=== PATIENT | female | born 1955 | race Caucasian/White ===

== ENCOUNTER 2018-03-05 02:30 | Inpatient (IN) | payer OTHER ==
[~2018-03-05] VITALS: Ht 157.5 cm; Wt 70.9 kg
[~2018-03-05 02:30] MED LIST: CLARITIN-D 241 EACH PO; MUCINEX600 M1 PO; NASONEX17 GM NASB; PROAIR HFA8.5 GM INH
--- NOTE | 2018-03-05 11:33 | Patient Discharge Instructions ---
Discharge Instructions General Discharge Information You were seen/treated for: Hip pain You had these procedures: Total hip replacement Watch for these problems: See pre printed sheet No bath, but you may shower: Yes Other wound care: See pre printed sheet Diet Continue normal diet: Yes Activity Activity Self Limited: Yes Activity Limited to: Weight bear as tolerated Acute Coronary Syndrome Inclusion Criteria At DC or during hospital stay patient has or had the following: Discharge Core Measures Meds if any: Prescribed or Continued at Discharge Meds if any: NOT Prescribed or Continued at Discharge Congestive Heart Failure Inclusion Criteria At DC or during hospital stay patient has or had the following: Discharge Core Measures Meds if any: Prescribed or Continued at Discharge Meds if any: NOT Prescribed or Continued at Discharge Cerebrovascular accident Inclusion Criteria At DC or during hospital stay patient has or had the following: Discharge Core Measures Meds if any: Prescribed or Continued at Discharge Meds if any: NOT Prescribed or Continued at Discharge Venous thromboembolism Discharge Core Measures - Per Current guidelines, there needs to be overlap - treatment for the first 5 days of Warfarin therapy. - If discharged on Warfarin prior to 5 days of - overlap therapy, the patient will need to be - assessed for post discharge needs including - *Post discharge parental anticoagulation - *Warfarin and/or parental anticoagulation education - *Follow up date to check INR post discharge Meds if any: Prescribed or Continued at Discharge Note: Overlap Therapy is Warfarin and Anticoagulant Meds if any: NOT Prescribed or Continued at Discharge
[2018-03-05] MEDS ORDERED: OMEPRAZOLE20 M3 PO (11:34)
[2018-03-05] MEDS ORDERED: ASPIRIN EC81 M1 PO (11:34)
[2018-03-05] MEDS ORDERED: DILAUDID2 M1 PO (11:34)
[2018-03-05] MEDS ORDERED: COLACE100 M1 PO (11:34)
[2018-03-05] MEDS ORDERED: MIRALAX17 G1 PO (11:34)
--- NOTE | 2018-03-05 11:36 | Admission Core Measures ---
Acute Coronary Syndrome (CM) ACS Core Measures Acute Coronary Syndrome Diagnosis No Congestive Heart Failure (NEW) CHF Core Measures Congestive Heart Failure Diagnosis No Cerebrovascular Accident CVA Core Measures CVA/TIA Diagnosis No Venous Thromboembolism VTE Core Dante (View Protocol) VTE Risk Factors Surgery No Mechanical VTE Prophylaxis d/t N/A MechProphylax Ordered No VTE Pharm Prophylaxis d/t NA PharmProphylax ordered Problem List As ranked by this Provider includes Assessment & Plan 1. Status post total hip replacement, left HOME MEDS Home Med List Albuterol Sulfate (Proair Hfa) 90 MCG HFA.AER.AD 2 PUF INH AD PRN RESP. ( Reported) Aspirin (Ecotrin*) 81 MG TABLET.DR 1 TAB PO BID blood thinner Docusate Sodium (Colace) 100 MG CAPSULE 1 CAP PO BID constipation Guaifenesin (Mucinex) 600 MG TAB.ER.12H 1 TAB PO QPM MUCUS (Reported) Hydromorphone HCl (Dilaudid) 2 MG TABLET 1-2 TAB PO Q4P PRN pain Loratadine/Pseudoephedrine (Claritin-D 24 Hour Tablet) 10 MG-240 MG TAB.ER.24H 1 TAB PO QAM ALLERGIES (Reported) Mometasone Furoate (Nasonex) 50 MCG SPRAY.PUMP 2 SPRAY NASB DAILY ALLERGIES ( Reported) Omeprazole 20 MG TABLET.DR 1 TAB PO DAILY ulcer prophylaxis Polyethylene Glycol 3350 (Miralax) 17 GRAM POWD.PACK 1 PAC PO DAILY constipation
--- NOTE | 2018-03-05 11:37 | Surg Short-stay <48hrs Dis Sum ---
Visit Information Visit Dates Admission Date: 03/05/18 Discharge Date: 03/06/18 Surgical Short Stay DC Summary Admission Diagnosis: DJD/OA Final Diagnosis: Same, s/p L MAURA Procedure(s): L MAURA - see operative report Summary/Significant Findings: Pt underwent L MAURA by Dr Gloria and was brought to the PACU in stable condition. Post op she was seen by PT and ambulated WBAT. She was able to void without difficulty, her vitals remained stable, her pain was well controlled and she was deemed stable for discharge home with services. Condition at Discharge: good Discharge Disposition: home health services Discharge instructions provided to patient/family: Yes Post discharge follow-up plan: Keep scheduled appointment with Dr Gloria
--- NOTE | 2018-03-05 14:21 | RADIOLOGY REPORT ---
EXAMINATION: XR HIP, LEFT CLINICAL INFORMATION: Patient status post total hip arthroplasty. COMPARISON: None TECHNIQUE: Portable 2 views of the left hip. FINDINGS: Patient is status post total left hip arthroplasty. Components are in expected alignment. There is no periprosthetic femoral fracture. IMPRESSION: Unremarkable post arthroplasty radiographs.
--- NOTE | 2018-03-05 16:03 | Operative Report ---
Operative/Inv Procedure Report Surgery Date: 03/05/18 Name of Procedure: Left total hip replacement Pre-Operative Diagnosis: Primary left hip DJD Post-Operative Diagnosis: Same Estimated Blood Loss: 250 Surgeon/Player Development Manager: Faizan ROBLES,Cesar Sanderson Anesthesia: block Operative/Procedure Note Note: Description of Procedure: The patient was taken to the operating room and positively identified. After induction of spinal anesthesia and administration of appropriate pre-operative antibiotics, the patient was positioned supine on the operating room table and all bony prominences were well padded. After performing a surgical timeout, the left lower extremity was prepped and draped in the usual sterile fashion. A direct anterior approach was made to the left hip. The incision was carried sharply through superficial soft tissues to the level of the fascia. Meticulous hemostasis was maintained with Bovie electocautery. The fascia over the tensor fascia johnson muscle was opened sharply and the interval between the TFL and the sartorius was entered bluntly taking care to stay lateral to the lateral femoral cutaneous nerve. Retractors were placed around the femoral neck and the pericapsular fat was identified. The ascending branches of the lateral femoral circumflex vessels were identified and carefully coagulated. The pericapsular fat and anterior capsule were then resected. A napkin ring osteotomy was performed and the femoral head was removed without difficulty. Attention was then turned to the acetabulum. After appropriate placement of retractors, the acetabulum was exposed. Soft tissue was cleaned from the acetabular margin and notch. Overhanging osteophytes were removed and the teardrop was exposed. The acetabulum was then sequentially reamed to accept a 52 mm [place] Tritanium hemispherical solid shell. This was impacted into place in the appropriate position and fitted with a 32 mm Trident X3 zero degree polyethylene insert. Attention was then turned to the femur. After performing the appropriate ligament releases, the proximal femur was exposed. It was then sequentially broached to accept a size #2 [place] Accolade 2 132 neck angle stem. This was trialed for leg length and stability. The trial component was removed and the final component was impacted into place. The trunnion was carefully cleaned and fit with a 32 mm, +4 Biolox delta ceramic femoral head. The hip was reduced and put through a full range of motion and found to be stable. The articular space was then irrigated with sterile saline. The periarticular soft tissues were infilitrated with Marcaine. The fascial layer was closed with interrupted #1 vicryl suture and the skin was re-approximated with interrupted 2 -0 vicryl. The skin was closed with a running 3-0 V-Lock suture. Steri-strips and a sterile dressing were applied. The patient was awakened and taken to the recovery room in satisfactory condition.
--- NOTE | 2018-03-05 16:06 | PN- Orthopedic ---
Subjective Subjective: POSTOP CHECK Patient reports decreased sensation in her lower extremities and mild pain in her hip. She reports tolerating water. Denies nausea, vomiting chest pain, difficulty breathing, sob or voiding. She offers no other complaints. Objective Vital Signs and I&Os afebrile, VSS Physical Exam: Gen - resting comfortably in PACU in nad Cardiac - S1S2 noted Lungs - CTAB Abd - soft, nontender Ext - Left hip dressing c/d/i, moves all extremities, compartment soft, decreased motor and sensory secondary to spinal, alps in place, no edema or calf tenderness Current Medications: Current Medications Sig/Ramiro Start time Last Medication Dose Route Stop Time Status Admin Acetaminophen 0 .STK-MED ONE 03/05 1033 DC PO Acetaminophen 975 MG ONCE 03/05 0000 NR PO 03/05 235 Albuterol Sulfate 2 PUF Q4P PRN 03/05 1130 AC INH Cefazolin Sodium 2,000 MG ONCE 03/05 0000 NR IV 03/05 235 Fentanyl Citrate 100 MCG .STK-MED ONE 03/05 0653 DC IM 03/05 0654 Fluticasone 2 SPRAY DAILY 03/06 900 AC Propionate JASON Guaifenesin 600 MG QPM 03/05 2100 AC PO Loratadine 10 MG DAILY 03/06 900 AC PO Midazolam HCl 2 MG .STK-MED ONE 03/05 0653 DC IM 03/05 0654 Oxycodone HCl 0 .STK-MED ONE 03/05 1033 DC PO Oxycodone HCl 10 MG ONCE 03/05 0000 NR PO 03/05 235 Tranexamic Acid 2,000 MG .STK-MED ONE 03/05 0742 DC IV 03/05 743 Results Last 48 Hours of Labs: SERVICE DATE: 03/05/18 EXAM TYPE: RAD - XRY-HIP 2-3 VIEWS, LEFT EXAMINATION: XR HIP, LEFT CLINICAL INFORMATION: Patient status post total hip arthroplasty. COMPARISON: None TECHNIQUE: Portable 2 views of the left hip. FINDINGS: Patient is status post total left hip arthroplasty. Components are in expected alignment. There is no periprosthetic femoral fracture. IMPRESSION: Unremarkable post arthroplasty radiographs. DICTATED BY: Gama Landa MD DATE/TIME DICTATED:03/05/181408 CASTING AGENT:HUDSON DATE/TIME TRANSCRIBED:07/09/18 / 1409 Assessment/Plan Assessment/Plan 62 F w/ a hx of seasonal allergies and asthma s/p L THR, with diminished sensation secondary to spinal, awaiting PT eval PT eval, WBAT Reg diet, IVF overnight Pain control prn Postop abx - ancef x2 DVT ppx - alps, asa 81 bid Home meds ordered Encourage IS Dc planning Core Measures Venous Thromboembolism VTE Risk Factors Surgery No Mechanical VTE Prophylaxis d/t N/A MechProphylax Ordered No VTE Pharm Prophylaxis d/t NA PharmProphylax ordered
[2018-03-05 17:18] VITALS: BP 118/76
[2018-03-05 19:56] VITALS: BP 112/66
[2018-03-05 22:24] VITALS: BP 108/60
[2018-03-05 23:30] VITALS: BP 106/58
[2018-03-06 03:36] VITALS: BP 100/58
[2018-03-06 08:00] VITALS: BP 118/60
[2018-03-06 08:33] LABS: ABSOLUTE BASOPHIL COUNT 0 /CUMM (0.0-0.2); ABSOLUTE EOSINOPHIL COUNT 0 /CUMM (0.0-0.7); ABSOLUTE GRANULOCYTE CT 7.9 /CUMM (1.4-6.5); ABSOLUTE LYMPH COUNT 0.8 /CUMM (1.2-3.4); ABSOLUTE MONOCYTE COUNT 0.3 /CUMM (0.10-0.60); BASOPHIL % 0.3 % (0.0-2.0); EOSINOPHIL % 0.1 % (0-5); GRANULOCYTE % 86.8 % (42.2-75.2); HEMATOCRIT 33.2 % (37-47); MEAN CORPUSCULAR HGB 33.9 PG (27.0-31.0); MEAN CORPUSCULAR HGB CONC 34.1 G/DL (33.0-37.0); MEAN CORPUSCULAR VOLUME 99.6 FL (81.0-99.0); MEAN PLATELET VOLUME 7.6 FL (7.4-10.4); PLATELET COUNT 233 /CUMM (130-400); RED BLOOD CELL CT 3.34 /CUMM (4.20-5.40)
[2018-03-06 09:14] LABS: WHITE BLOOD CELL COUNT 9.1 /CUMM (4.8-10.8)
--- NOTE | 2018-03-06 09:58 | PN- Orthopedic ---
Subjective Subjective: Patient in bed with minimal pain, controlled with oral medication. Tolerating regular diet with no nausea. Out of bed with physical therapy, ambulating with rolling walker. Voiding. No bowel movement yet. Denies paresthesias. Denies chest pain, shortness of breath, headache Objective Vital Signs and I&Os Vital Signs Date Time Temp Pulse Resp B/P B/P Pulse O2 O2 Flow FiO2 Mean Ox Delivery Rate 03/06 0800 76 18 118/60 96 Room Air 03/06 0336 98.1 69 18 100/58 97 Room Air 03/05 2330 98.0 71 18 106/58 96 Room Air 03/05 2224 98.0 77 17 108/60 97 Room Air 03/05 1956 97.8 70 18 112/66 97 Room Air 03/05 1718 97.2 77 18 118/76 100 Room Air Intake & Output 03/06 1600 03/06 0800 03/06 0000 03/05 1600 03/05 0800 03/05 0000 Intake Total 900 645 Output Total Balance 900 645 Intake, IV 900 645 Number 0 0 Bowel Movements Patient 156 lb 150 lb Weight Weight Reported by Patient Measurement Method Physical Exam: General no acute distress Respirationsclear Cardiacregular rate and rhythm Abdomensoft nontender Extremitiesleft hip dressing clean and dry, thigh is soft and appropriately tender. No calf tenderness bilaterally. Distal sensory and motor function intact Current Medications: Current Medications Sig/Ramiro Start time Last Medication Dose Route Stop Time Status Admin Acetaminophen 650 MG Q4P PRN 03/05 1730 AC PO Acetaminophen 1,000 MG Q8 03/05 1400 DC 03/06 IV 03/06 0601 0511 Acetaminophen 0 .STK-MED ONE 03/05 1033 DC PO Acetaminophen 975 MG ONCE 03/05 0000 DC PO 03/05 2359 Albuterol Sulfate 2 PUF Q4P PRN 03/05 1730 AC INH Albuterol Sulfate 2 PUF Q4P PRN 03/05 1130 DC INH Aspirin Buffered 81 MG BID 03/05 2100 AC 03/06 PO 0801 Cefazolin Sodium 2 GM Q8H 03/05 1730 DC 03/06 N/A 1 UNIT IV 03/06 0159 0221 Cefazolin Sodium 2,000 MG ONCE 03/05 0000 DC IV 03/05 2359 Dextrose/Sodium 1,000 ML .[id number] 03/05 1730 AC 03/05 Chloride IV 1820 Docusate Sodium 100 MG BID 03/05 2100 AC 03/06 PO 0801 Fluticasone 2 SPRAY DAILY 03/06 900 AC 03/06 Propionate JASON 0801 Guaifenesin 600 MG QPM 03/05 2100 DC PO Guaifenesin 600 MG QPM 03/05 2100 AC 03/05 PO 2002 Hydromorphone HCl 2 MG Q4P PRN 03/05 1730 AC PO Hydromorphone HCl 4 MG Q4P PRN 03/05 173 AC 03/06 PO 08 Loratadine 10 MG DAILY 03/06 900 DC PO Loratadine 10 MG DAILY 03/06 900 AC 03/06 PO 0801 Morphine Sulfate 2 MG Q3P PRN 03/05 173 AC IV Ondansetron HCl 4 MG Q6P PRN 03/05 173 AC IV Oxycodone HCl 0 .STK-MED ONE 03/05 1033 DC PO Oxycodone HCl 10 MG ONCE 03/05 0000 DC PO 03/05 2359 Polyethylene Glycol 17 GM DAILY 03/06 900 AC 03/06 PO 08 Results Last 48 Hours of Labs: Laboratory Tests 03/06 641 Chemistry Sodium (137 - 145 mmol/L) 140 Potassium (3.5 - 5.1 mmol/L) 4.0 Chloride (98 - 107 mmol/L) 107 Carbon Dioxide (22 - 30 mmol/L) 27 Anion Gap (5 - 16) 6 BUN (7 - 17 mg/dL) 10 Creatinine (0.5 - 1.0 mg/dL) 0.6 Estimated GFR (>60 ml/min) > 60 BUN/Creatinine Ratio (7 - 25 %) 16.7 Hematology CBC w Diff NO MAN DIFF REQ WBC (4.8 - 10.8 /CUMM) 9.1 RBC (4.20 - 5.40 /CUMM) 3.34 L Hgb (12.0 - 16.0 G/DL) 11.3 L Hct (37 - 47 %) 33.2 L MCV (81.0 - 99.0 FL) 99.6 H MCH (27.0 - 31.0 PG) 33.9 H MCHC (33.0 - 37.0 G/DL) 34.1 RDW (11.5 - 14.5 %) 13.0 Plt Count (130 - 400 /CUMM) 233 MPV (7.4 - 10.4 FL) 7.6 Gran % (42.2 - 75.2 %) 86.8 H Lymphocytes % (20.5 - 51.1 %) 9.0 L Monocytes % (1.7 - 9.3 %) 3.8 Eosinophils % (0 - 5 %) 0.1 Basophils % (0.0 - 2.0 %) 0.3 Absolute Granulocytes (1.4 - 6.5 /CUMM) 7.9 H Absolute Lymphocytes (1.2 - 3.4 /CUMM) 0.8 L Absolute Monocytes (0.10 - 0.60 /CUMM) 0.3 Absolute Eosinophils (0.0 - 0.7 /CUMM) 0 Absolute Basophils (0.0 - 0.2 /CUMM) 0 Assessment/Plan Assessment/Plan 62-year-old female status post left total hip arthroplasty postop day 1. Stable Pain management DVT prophylaxisaspirin twice daily Physical therapyweightbearing as tolerated with rolling walker Regular dietDC IV fluids Bowel regimen ordered Regular home meds Dressing change postop day 2 DC planningdischarge home today Core Measures Venous Thromboembolism VTE Risk Factors Surgery No Mechanical VTE Prophylaxis d/t N/A MechProphylax Ordered No VTE Pharm Prophylaxis d/t NA PharmProphylax ordered
== END 2018-03-06 12:23 | disposition home health service (06) | DRG 470 ==
LOC: SDA 02:30 → ENRESERV 14:57 → ENTRNSPT 16:59 → EDTRNSPTSTS 17:10 → EDTRNSPT 17:10 → 2NB 17:18 → CMPTRNSPT 17:24 → ENPENDDIS 03-06 09:58 → ENTRNSPT 03-06 11:40 → EDTRNSPT 03-06 12:17 → EDTRNSPTSTS 03-06 12:17 → 2NB 03-06 12:23 → CMPTRNSPT 03-06 12:25
PROVIDERS: Physician Assistant Surgical
PROC: 0SRB04A Replacement of Left Hip Joint with Ceramic on Polyethylene Synthetic Substitute, Uncemented, Open Approach (ICD-10-PCS; principal; 2018-03-05)
DX: M16.12 Unilateral primary osteoarthritis, left hip (principal); J45.909 Unspecified asthma, uncomplicated; Z90.79 Acquired absence of other genital organ(s)
CPT/HCPCS: 2NSBP; 36592; 73502-LT; 82436; 97116-GO; 97161-GP; 97530-GO; J0131; J0690; J0735; J3490; J7042